=== PATIENT | male | born 1940 | race Caucasian/White ===

== ENCOUNTER 2018-12-13 18:01 | Emergency (ER) | payer OTHER ==
--- NOTE | 2018-12-13 18:15 | EDPHY ---
H & P Smoking Status: Never smoked Time Seen by Provider: 12/13/18 18:11 HPI/ROS: CHIEF COMPLAINT: Abdominal pain HISTORY OF PRESENT ILLNESS: 78-year-old male here with his chief complaint of approximately 24 hr of worsening abdominal pain and distention. States he has a history of chronic kidney disease and renal transplants the left 12 years ago. states his creatinine is generally around 3.8. He is also on chemotherapy for myelodysplastic fibrosis. CC chronically has diarrhea secondary to medications for this. He has no blood in his stool. Last bowel movement was yesterday. States he has chronically low platelets around 80. Denies any use of blood thinners. He has not had a fever. He has not vomited. Has no history of abdominal surgeries other that renal transplant the. He denies any chest pain but does states he had shortness of breath earlier today. Denies any cough or pleuritic chest pain. REVIEW OF SYSTEMS: Constitutional: No fever, no chills. Eyes: No discharge. ENT: No sore throat. Cardiovascular: No chest pain, no palpitations. Respiratory: No cough, + shortness of breath. Gastrointestinal: + abdominal pain, no vomiting. Genitourinary: No hematuria. Musculoskeletal: No back pain. Skin: No rashes. Neurological: No headache. (Jaylen Webb) Physical Exam: General Appearance: Alert and no distress. ENT: normal dentition. No tonsillar exudate or swelling. Eyes: Pupils equal and round no injection. Respiratory: Chest is nontender, lungs are clear to auscultation. Cardiac: regular rate and rhythm. No lower extremity edema Gastrointestinal: Abdomen is distended and diffusely tender without guarding or rebound Musculoskeletal: Neck is supple and nontender. Extremities have full range of motion and are nontender without deformity Skin: No rashes or lesions. Neuro: Cranial nerves grossly intact. Ambulatory. (Jaylen Webb) Constitutional: Initial Vital Signs Temperature (C) 36.4 C 12/13/18 18:06 Heart Rate 88 12/13/18 18:06 Respiratory Rate 18 12/13/18 18:06 Blood Pressure 170/96 H 12/13/18 18:06 O2 Sat (%) 96 12/13/18 18:06 O2 Delivery Mode Nasal Cannula O2 (L/minute) 2 Allergies/Adverse Reactions: Penicillins Allergy (Verified 12/13/18 18:03) Home Medications: Medication Instructions Recorded Unknown 12/13/18 Medical Decision Making - Diagnostics Imaging Results: Imaging Impressions Chest X-Ray 12/13/18 18:21 Impression: Acute CHF. Abdomen/Pelvis CT 12/13/18 18:22 Impression: 1. Upper third sigmoid colon perforation with an adjacent abscess and free intra-abdominal air, likely related to diverticulitis. 2. Cardiomegaly, ascites, pericardial effusion and likely small pleural effusions suggest a hypoproteinemic state or findings related to chronic CHF. 3. Splenomegaly with low density lesions in the spleen of undetermined etiology. 4. Unobstructed right renal transplant. 5. Bones consistent with myelofibrosis. No evidence of metastatic prostate cancer. Results discussed with AKILA Crabtree at 7:14 PM. General information for patients regarding this examination can be found at [email or web address]. If you have questions or comments about this report, please contact me at (hospital) or [phone] (cell). ED Course/Re-evaluation: The patient was evaluated and managed by the physician's geriatric nursing assistant. My cosignature indicates that I reviewed the chart and I agree with the findings and plan of care as documented. I am the secondary supervising physician. I reviewed the case with the PA. We discussed antibiotic treatment. [facility] was contacted. Because would prefer transfer. This was arranged. Multiple updates were made with [facility]. 2145: Consultation was made with Dr. Montes from [facility]. He was the reported accepting physician by Dr. Ansari. However, during the conversation Dr. Montes did not know of the patient and not been notified of the transfer. Because of this Dr. Johnny hutton was contacted from [facility]. She came to the emergency department. She discussed the case with both Dr. Montes ([place]) and [facility]. She subsequently stated the patient will be transferred to [facility]. She remained transferred. I requested that she see the patient in the emergency department. (Earlene Tamayo) Patient is a 78-year-old male with a history of myelofibrosis and atrial fibrillation here with 24-36 hr of worsening abdominal pain. On examination he is afebrile he is hypertensive the not tachycardic. His abdomen is distended and diffusely tender without guarding or rebound. Labs reveal no leukocytosis and normal lactate blood cultures were drawn. CT scan reveals perforated diverticulitis with free air fluid and abscess. He was started on IV antibiotics including vancomycin, Flagyl and imipenem. Has pain was difficult to control received initially 4 mg of morphine with no improvement is pain. He was given 100 mcg of fentanyl and his pain did improve. After CT was resulted he was switched to Dilaudid and received total of 1 mg of Dilaudid while in the emergency room. The patient is a [facility] patient. Called [facility] requesting patient be kept here for surgical management of his perforated diverticulitis. He has his vital signs were stable and had no leukocytosis attempt was made to transfer the patient to [facility]. Initially the attempt was made to transfer to [facility] but there was significant delay in this and after 1 hr according to the ecm there was no response from a [facility] general surgeon. Attempt was then made to transfer him to [facility] in [place]. I discussed the case with Dr. Kearns stated that Dr. Montes would be the accepting general surgeon. After close to an hour of waiting for transport called and found out the patient had a room at [facility] was being transferred directly to the floor. There is some concern about transferring the patient to the floor not being seen by the surgeon as this would delay his definitive treatment and evaluation. I was able to get hold of Dr. Montes the surgeon and he had not heard of the patient at that time and had not accepted him. At this time I contacted our own surgeon Dr. Bernstein who evaluated the patient and then was kind enough to call [facility] and discuss case with her surgeon there who accepted the patient for transfer. Patient's blood pressure remained stable until he was transported to [facility]. (Jaylen Webb) Differential Diagnosis: Sepsis, pneumonia, atrial fibrillation, ACS, appendicitis, pancreatitis ( Jaylen Webb) - Data Points Laboratory Results: Laboratory Results 12/13/18 18:20 12/13/18 18:20 12/13/18 12/13/18 12/13/18 19:50 18:20 18:20 WBC RBC Hgb Hct MCV MCH MCHC RDW Plt Count MPV Neut % (Auto) Lymph % (Auto) Ford % (Auto) Eos % (Auto) Baso % (Auto) Nucleat RBC Rel Count Absolute Neuts (auto) Absolute Lymphs (auto) Absolute Monos (auto) Absolute Eos (auto) Absolute Basos (auto) Absolute Nucleated RBC Immature Gran % Seg Neutrophils % Band Neutrophils % Lymphocytes % Monocytes % Eosinophils % Basophils % Metamyelocytes % Myelocytes % Promyelocytes % Blast Cells % Immature Gran # Absolute Seg Neuts Absolute Band Neuts Absolute Lymphocytes Absolute Monocytes Absolute Eosinophils Absolute Basophils Absolute Metamyelocyte Absolute Myelocytes Absolute Promyelocytes Absolute Plasma Cells Nucleated RBCs Absolute Blast Cells Plasma Cells % Platelet Estimate Polychromasia Microcytic Cells Tear Drop Cells Oval Macrocytes Elliptocytes Acanthocytes (Spur) Keratocytes Schistocytes Smear Review By PT 16.3 SEC H SEC (12.0-15.0) INR 1.29 H (0.83-1.16) APTT 32.0 SEC SEC (23.0-38.0) VBG Lactic Acid 1.4 mmol/L mmol/L (0.7-2.1) Sodium Potassium Chloride Carbon Dioxide Anion Gap BUN Creatinine Estimated GFR Glucose Calcium Magnesium 1.5 mg/dL L mg/dL (1.6-2.3) Total Bilirubin AST ALT Alkaline Phosphatase Total Protein Albumin Lipase 12/13/18 12/13/18 18:20 18:20 WBC 10.48 10^3/uL H 10^3/uL (3.80-9.50) RBC 4.40 10^6/uL 10^6/uL (4.40-6.38) Hgb 10.9 g/dL L g/dL (13.7-17.5) Hct 35.7 % L % (40.0-51.0) MCV 81.1 fL L fL (81.5-99.8) MCH 24.8 pg L pg (27.9-34.1) MCHC 30.5 g/dL L g/dL (32.4-36.7) RDW 21.2 % H % (11.5-15.2) Plt Count 138 10^3/uL L 10^3/uL (150-400) MPV TNP Neut % (Auto) Not Reported Lymph % (Auto) Not Reported Ford % (Auto) Not Reported Eos % (Auto) Not Reported Baso % (Auto) Not Reported Nucleat RBC Rel Count Not Reported Absolute Neuts (auto) Not Reported Absolute Lymphs (auto) Not Reported Absolute Monos (auto) Not Reported Absolute Eos (auto) Not Reported Absolute Basos (auto) Not Reported Absolute Nucleated RBC Not Reported Immature Gran % Not Reported Seg Neutrophils % 75.3 % % Band Neutrophils % 7.9 % % Lymphocytes % 4.5 % % Monocytes % 2.2 % % Eosinophils % 0.0 % % Basophils % 0.0 % % Metamyelocytes % 9.0 % % Myelocytes % 1.1 % % Promyelocytes % 0.0 % % Blast Cells % 0.0 % % Immature Gran # Not Reported Absolute Seg Neuts 7.89 10^3/uL H 10^3/uL (1.70-6.50) Absolute Band Neuts 0.83 10^3/uL H 10^3/uL (0.00-0.70) Absolute Lymphocytes 0.47 10^3/uL L 10^3/uL (1.00-3.00) Absolute Monocytes 0.23 10^3/uL L 10^3/uL (0.30-0.80) Absolute Eosinophils 0.00 10^3/uL L 10^3/uL (0.03-0.40) Absolute Basophils 0.00 10^3/uL L 10^3/uL (0.02-0.10) Absolute Metamyelocyte 0.94 10^3/mL H 10^3/mL (0.00-0.00) Absolute Myelocytes 0.12 10^3/mL H 10^3/mL (0.00-0.00) Absolute Promyelocytes 0.00 10^3/uL 10^3/uL (0.00-0.00) Absolute Plasma Cells 0.00 10^3/uL 10^3/uL (0.00-0.00) Nucleated RBCs 19.1 /100 WBC H /100 WBC (0-0) Absolute Blast Cells 0.00 10^3/uL 10^3/uL (0.00-0.00) Plasma Cells % 0.0 % % Platelet Estimate DECREASED L (ADEQ) Polychromasia 1+ H Microcytic Cells 2+ H Tear Drop Cells 1+ H Oval Macrocytes 1+ H Elliptocytes 1+ H Acanthocytes (Spur) 1+ H Keratocytes 1+ H Schistocytes 2+ H Smear Review By Pending PT INR APTT VBG Lactic Acid Sodium 136 mEq/L mEq/L (135-145) Potassium 4.4 mEq/L mEq/L (3.5-5.2) Chloride 113 mEq/L H mEq/L (97-110) Carbon Dioxide 12 mEq/l L mEq/l (22-31) Anion Gap 11 mEq/L mEq/L (6-14) BUN 80 mg/dL H mg/dL (7-23) Creatinine 4.7 mg/dL H mg/dL (0.7-1.3) Estimated GFR 12 Glucose 168 mg/dL H mg/dL (70-100) Calcium 6.6 mg/dL L mg/dL (8.5-10.4) Magnesium Total Bilirubin 0.7 mg/dL mg/dL (0.1-1.4) AST 13 IU/L L IU/L (17-59) ALT 23 IU/L IU/L (21-72) Alkaline Phosphatase 39 IU/L IU/L (38-126) Total Protein 5.3 g/dL L g/dL (6.3-8.2) Albumin 3.6 g/dL g/dL (3.5-5.0) Lipase 1205 IU/L H IU/L (23-300) Medications Given: Discontinued Medications Fentanyl (Sublimaze) 100 mcg IVP EDNOW ONE Stop: 12/13/18 19:07 Last Admin: 12/13/18 19:07 Dose: 100 mcg Hydromorphone HCl (Dilaudid) 0.5 mg IVP EDNOW ONE Stop: 12/13/18 20:36 Last Admin: 12/13/18 20:38 Dose: 0.5 mg Hydromorphone HCl (Dilaudid) 0.5 mg IVP EDNOW ONE Stop: 12/13/18 23:03 Last Admin: 12/13/18 23:04 Dose: 0.5 mg Metronidazole/Sodium Chloride (Flagyl 500 Mg (Premix)) 100 mls @ 100 mls/hr IV ONCE ONE PRN Reason: Protocol Stop: 12/13/18 20:20 Last Admin: 12/13/18 20:02 Dose: Not Given Aztreonam 2 gm/ Sodium (Chloride) 110 mls @ 110 mls/hr IV ONCE ONE PRN Reason: Protocol Stop: 12/13/18 20:39 Last Admin: 12/13/18 20:27 Dose: 110 mls Vancomycin/Sodium Chloride (Vancomycin 1 Gm (Premix)) 250 mls @ 250 mls/hr IV EDNOW ONE PRN Reason: Protocol Stop: 12/13/18 20:40 Last Admin: 12/13/18 20:00 Dose: 250 mls Sodium Chloride (Ns) 500 mls @ 0 mls/hr IV ONCE ONE PRN Reason: Wide Open Stop: 12/13/18 20:56 Last Admin: 12/13/18 21:01 Dose: 500 mls Morphine Sulfate (Morphine) 4 mg IVP Q4HRS PRN PRN Reason: Pain, Severe Unable to Take PO Stop: 12/23/18 18:22 Last Admin: 12/13/18 18:29 Dose: 4 mg Ondansetron HCl (Zofran) 4 mg IVP ONCE ONE Stop: 12/13/18 18:25 Last Admin: 12/13/18 18:26 Dose: 4 mg Departure - Departure Disposition: [facility] Referrals: LOUISE DAVALOS [Primary Care Provider] - As per Instructions
[2018-12-13] MEDS ORDERED: ONDANSETRON 4 MG/2 ML VIAL IVP ONE (18:24)
[2018-12-13] MEDS ORDERED: ONDANSETRON 4 MG/2 ML VIAL ONE (18:24)
[2018-12-13 18:50] LABS: INR 1.29 (0.83-1.16); PROTIME(PATIENT) 16.3 SEC (12.0-15.0)
[2018-12-13] MEDS ORDERED: fentaNYL 100 MCG/2 ML INJ ONE (19:03)
[2018-12-13] MEDS ORDERED: fentaNYL 100 MCG/2 ML INJ IVP ONE (19:06)
[2018-12-13 19:18] LABS: PLATELET COUNT 138 10^3/uL (150-400)
[2018-12-13] MEDS ORDERED: AZTREONAM IV ONE (19:40)
[2018-12-13] MEDS ORDERED: NS IV ONE (19:40)
[2018-12-13] MEDS ORDERED: VANCOMYCIN HCL/NORMAL SALINE 250 ML IV ONE (19:41)
[2018-12-13] MEDS ORDERED: HYDROmorphONE/DILAUDID 2 MG/ML INJ IVP ONE ×2 (20:35→23:02)
[2018-12-13] MEDS ORDERED: NS 500 ML IV ONE (20:55)
[2018-12-13 22:50] VITALS: BP 146/91
[2018-12-13] MEDS ORDERED: HYDROmorphONE/DILAUDID 1 MG/ML INJ ONE (23:03)
--- NOTE | 2018-12-14 00:02 | GCON ---
DATE OF CONSULTATION: 12/13/2018 CHIEF COMPLAINT: Free air perforated. HISTORY OF PRESENT ILLNESS: The patient is a 78-year-old man who presented to [facility] with worsening abdominal pain and distention. He has diarrhea secondary to medications for chemotherapy for his myelodysplastic fibrosis. He also has a history of a renal transplant. He has felt more short of breath and complains of abdominal pain. He had a CT scan performed in the emergency room which showed sigmoid colon perforation with adjacent abscess and free air. He also had cardiomegaly and pericardial effusion and known splenomegaly. His renal transplant was unobstructive. PAST MEDICAL HISTORY: 1. Myelofibrosis. 2. Renal transplant. 3. Splenomegaly. 4. Cardiomegaly. PAST SURGICAL HISTORY: Includes renal transplant. Social History: . Non Smoker ALLERGIES: Penicillin. REVIEW OF SYSTEMS: He complains of some shortness of breath, abdominal pain, chronic diarrhea. No hematochezia. No chest pain. No hematuria. No dysuria. PHYSICAL EXAMINATION: VITAL SIGNS: 36.7, 90, 151/87, 20, 97% on 2 L. GENERAL : Pleasant man, appears chronically ill, sitting up in bed. at bedside. HEENT: Normocephalic. He does have a hearing aid. Mucous membranes dry. Pupils equal and round. No scleral icterus. LUNGS: Clear to auscultation bilaterally. He is a bit tachypneic but clear. His breath seems a bit shallow but nonlabored. CARDIAC: Regular rate. No peripheral edema. ABDOMEN: Rounded abdomen. Tender to percussion. He is distended but soft. Scar from renal transplant. PSYCH: Able to converse easily, frustrated. NEURO: Grossly intact. SKIN: Warm and dry. RESULTS REVIEWED: I personally reviewed the results of his CBC which shows a white count of 10.48. His platelets are 138. INR 1.29. Lactic acid 1.4, creatinine 4.7, magnesium 1.5, [id number]. I personally reviewed the CT scan which shows free air and free fluid. There is thickening by the sigmoid colon. He does have splenomegaly. IMPRESSION AND PLAN: The patient is a 78-year-old man with perforated diverticulitis with free air and free fluid. He is hemodynamically stable. He is certainly uncomfortable but not unstable. This has been going on about 24 hours in duration. I discussed the case with Dr. Roman at [facility], who is the general surgeon control system manager. The patient has [facility] insurance, and arrangements will be made for transfer. I was notified of this case at approximately 9:45 p.m. I was on the phone with [facility] by [address] p[address] and speaking with Dr. Roman by that time. I also examined the patient during this time. I do think that the patient needs to go to the [facility] for a sigmoid colectomy and ostomy. I think that he will be best managed at [facility] as that is where his care is for his myelofibrosis as well as his renal team. The patient indeed may get very sick. This is especially critical as he is already immunosuppressed, and this could be a prolonged hospital course including time in the ICU. Blood cultures here are pending. He received Flagyl 500 mg, vancomycin 1 g, and aztreonam 2 g here. He has received fentanyl and Dilaudid. /[id number]/MODL MTDD
--- NOTE | 2018-12-20 13:20 | CPEKG ---
Test Reason : OPEN Blood Pressure : / mmHG Vent. Rate : 091 BPM Atrial Rate : 000 BPM P-R Int : 158 ms QRS Dur : 087 ms QT Int : 341 ms P-R-T Axes : 000 055 067 degrees QTc Int : 420 ms Atrial fibrillation Anterior infarct, old Minimal ST depression, lateral leads Confirmed by Olayinka Cooper ([id number]) on 12/20/2018 1:19:42 PM Referred By: Confirmed By:Olayinka Cooper
== END 2018-12-13 23:17 | disposition short-term general hospital (02) ==
DX: K57.20 Diverticulitis of large intestine with perforation and abscess without bleeding (principal); I50.9 Heart failure, unspecified; D46.9 Myelodysplastic syndrome, unspecified; Z94.0 Kidney transplant status
CPT/HCPCS: 71045; 74176; 93005; 96365; 96368; 96375; 96376; 99285; J1170; J2270; J2405; J3010; J3370